=== PATIENT | female | born 1950 | race Hispanic/Latino ===

== ENCOUNTER 2024-09-19 09:04 | Emergency (ER) | payer MEDICARE ==
[~2024-09-19] VITALS: Ht 152.4 cm; Wt 64.9 kg
[2024-09-19 09:12] VITALS: RESP 18; TEMP 97.9
[2024-09-19] MEDS ORDERED: DIPHTH,PERTUSS(ACELL),TET VAC 0.5 ML SYRINGE IM ONE (09:45)
[2024-09-19] MEDS: KETOROLAC TROMETHAMINE 30 MG/ML VIAL IM ONE (10:08)
[2024-09-19] MEDS: TETANUS/DIPHTHERIA TOX ADULT 0.5 ML SYR IM ONE (10:35)
[2024-09-19] MEDS: LIDOCAINE HCL 1% LOCAL INJ 20 ML VIAL INJ ONE (10:38)
[2024-09-19 11:00] VITALS: PULSE 64; O2SAT 97
[2024-09-19] MEDS ORDERED: NAPROSYN500 MG PO (11:28)
[2024-09-19] MEDS ORDERED: METHOCARBAMOL750 MG PO (11:28)
== END 2024-09-19 12:16 | disposition home or self-care (01) ==
LOC: ER 09:43
DX: S01.112A Laceration without foreign body of left eyelid and periocular area, initial encounter (principal); W01.198A Fall on same level from slipping, tripping and stumbling with subsequent striking against other object, initial encounter; Y93.01 Activity, walking, marching and hiking; Y92.89 Other specified places as the place of occurrence of the external cause; I10 Essential (primary) hypertension; E11.9 Type 2 diabetes mellitus without complications
CPT/HCPCS: 12011; 70450; 90471; 90714; 99284; J1885; J2003